=== PATIENT | female | born 1990 | race Caucasian/White ===

== ENCOUNTER 2020-10-05 21:54 | Emergency (ER) | payer SELFPAY ==
[2020-10-05 22:07] VITALS: BP 144/80; PULSE 88; TEMP 98.7; BMI 28.3
[2020-10-05] MEDS ORDERED: SODIUM CHLORIDE 1,000 ML IV STA (22:47)
[2020-10-05] MEDS ORDERED: METOCLOPRAMIDE HCL INJECTION 10 MG/2 ML VIAL IVPUSH ONE (22:47)
[2020-10-05] MEDS ORDERED: METOCLOPRAMIDE HCL INJECTION 10 MG/2 ML VIAL ONE (22:56)
[2020-10-05] MEDS ORDERED: KETOROLAC TROMETHAMINE 30 MG/1 ML VIAL IVPUSH ONE (23:25)
[2020-10-05] MEDS ORDERED: KETOROLAC TROMETHAMINE 30 MG/1 ML VIAL ONE (23:52)
== END 2020-10-06 01:37 | disposition home or self-care (01) ==
LOC: JER 21:54
PROC: 3E033GC Introduction of Other Therapeutic Substance into Peripheral Vein, Percutaneous Approach (ICD-10-PCS; principal; 2020-10-05)
PROC: 3E0333Z Introduction of Anti-inflammatory into Peripheral Vein, Percutaneous Approach (ICD-10-PCS; 2020-10-05)
PROC: 3E033GC Introduction of Other Therapeutic Substance into Peripheral Vein, Percutaneous Approach (ICD-10-PCS; 2020-10-05)
PROC: 3E0337Z Introduction of Electrolytic and Water Balance Substance into Peripheral Vein, Percutaneous Approach (ICD-10-PCS; 2020-10-05)
DX: G44.209 Tension-type headache, unspecified, not intractable (principal)
CPT/HCPCS: 71046-TC-FY; 84703; 99284-25

== ENCOUNTER 2022-03-04 13:57 | Emergency (ER) | payer OTHER ==
[2022-03-04 14:01] VITALS: BP 122/80; PULSE 80; RESP 18; TEMP 97.2; BMI 27.0
[2022-03-04] MEDS ORDERED: SODIUM CHLORIDE 0.9% 500 ML INFUS.BAG IV ONE (15:23)
== END 2022-03-04 17:24 | disposition left against medical advice (07) ==
LOC: JER 13:57
DX: R55 Syncope and collapse (principal)
CPT/HCPCS: 99283-25; 99284-25

== ENCOUNTER 2022-05-23 14:33 | Emergency (ER) | payer OTHER ==
[2022-05-23 14:45] VITALS: BP 120/74; PULSE 89; RESP 20; TEMP 98; BMI 27.6
[2022-05-23] MEDS ORDERED: IBUPROFEN 600 MG TABLET (FP) PO ONE ×2 (15:50→15:51)
== END 2022-05-23 16:20 | disposition home or self-care (01) ==
LOC: JERFT 14:33
PROC: 2W38X1Z Immobilization of Right Upper Extremity using Splint (ICD-10-PCS; principal; 2022-05-23)
DX: S50.01XA Contusion of right elbow, initial encounter (principal); W01.0XXA Fall on same level from slipping, tripping and stumbling without subsequent striking against object, initial encounter
CPT/HCPCS: 73070-TC-RT-FY; 73110-TC-RT-FY; 99284-25

== ENCOUNTER 2022-08-16 19:28 | Emergency (ER) | payer OTHER ==
[2022-08-16 19:37] VITALS: RESP 18; TEMP 98.4; BMI 29.2
[2022-08-16] MEDS ORDERED: MAG HYDROX/AL HYDROX/SIMETH 30 ML UNIT-DOSE CUP PO ONE (20:56)
[2022-08-16] MEDS ORDERED: FAMOTIDINE 20 MG TABLET PO ONE (20:56)
[2022-08-16] MEDS ORDERED: ACETAMINOPHEN 325 MG TABLET (FP) PO ONE (20:56)
[2022-08-16] MEDS ORDERED: FAMOTIDINE 20 MG TABLET ONE (21:36)
[2022-08-16] MEDS ORDERED: ACETAMINOPHEN 325 MG TABLET (FP) ONE (21:37)
[2022-08-16] MEDS ORDERED: MAG HYDROX/AL HYDROX/SIMETH 30 ML UNIT-DOSE CUP ONE (21:37)
[2022-08-16 22:10] LABS: BASO % 0.5 % (0-2.0); EOS % 2.2 % (0-4.5); HEMATOCRIT 38.9 % (32.4-45.2); HEMOGLOBIN 13.6 GM/dL (10.7-15.3); MCH 30.1 pg (25.7-33.7); MCHC 34.8 g/dl (32.0-36.0); MEAN CELL VOLUME 86.3 fl (80-96); MEAN PLT VOLUME 8.4 fl (7.5-11.1); MONO % 5.1 % (3.8-10.2); NEUT % 76.2 % (42.8-82.8); PLATELET COUNT 336 10^3/uL (134-434); RBC 4.51 M/mm3 (3.60-5.2); RDW 13.9 % (11.6-15.6); WHITE BLOOD COUNT 6.7 K/mm3 (4.0-10.0)
[2022-08-16 22:39] LABS: INR 1.18 (0.83-1.09); PROTHROMBIN TIME (PATIENT) 13.7 SEC (9.7-13.0)
[2022-08-16 22:41] LABS: ACTIVATED PTT 28.4 SECONDS (25.2-36.5)
[2022-08-16 22:45] LABS: CALCIUM 9.4 mg/dL (8.5-10.1)
[2022-08-16 22:46] LABS: ALBUMIN 4.3 g/dl (3.4-5.0); BLOOD UREA NITROGEN 11.3 mg/dL (7-18)
[2022-08-16 22:49] LABS: CREATININE 0.7 mg/dL (0.55-1.3)
[2022-08-16 22:50] LABS: BILIRUBIN,TOTAL 0.4 mg/dL (0.2-1)
[2022-08-16 22:51] LABS: TOT PROT 8.7 g/dl (6.4-8.2)
[2022-08-17 03:20] VITALS: BP 138/81; PULSE 80
[2022-08-17] MEDS ORDERED: ACETAMINOPHEN 325 MG TABLET (FP) PO ONE (04:17)
[2022-08-17] MEDS ORDERED: MAG HYDROX/AL HYDROX/SIMETH 30 ML UNIT-DOSE CUP PO ONE (04:17)
[2022-08-17] MEDS ORDERED: MAG HYDROX/AL HYDROX/SIMETH 30 ML UNIT-DOSE CUP ONE (04:26)
[2022-08-17] MEDS ORDERED: ACETAMINOPHEN 325 MG TABLET (FP) ONE (04:26)
== END 2022-08-17 04:46 | disposition left against medical advice (07) ==
LOC: JER 19:28
DX: R07.89 Other chest pain (principal); R06.02 Shortness of breath; R11.0 Nausea; R09.81 Nasal congestion; R07.0 Pain in throat; Z20.822 Contact with and (suspected) exposure to COVID-19
CPT/HCPCS: 0241U-QW; 36415; 71046-TC-FY; 71275-TC; 80053; 84484; 84703; 85025; 85379; 85610; 85730; 93005; 93010; 99285-25; Q9967

== ENCOUNTER 2022-10-14 05:29 | Emergency (ER) | payer OTHER ==
[2022-10-14 05:49] VITALS: BMI 29.2
[2022-10-14] MEDS ORDERED: MAG HYDROX/AL HYDROX/SIMETH 30 ML UNIT-DOSE CUP PO ONE (07:34)
[2022-10-14] MEDS ORDERED: ONDANSETRON 4 MG/2 ML VIAL IVPUSH ONE (07:35)
[2022-10-14] MEDS ORDERED: FAMOTIDINE 20 MG/50 ML IVPB 20 MG/50 ML MG IVPB ONE ×3 (07:35→08:56)
[2022-10-14] MEDS ORDERED: ONDANSETRON 4 MG/2 ML VIAL ONE (08:55)
[2022-10-14] MEDS ORDERED: MAG HYDROX/AL HYDROX/SIMETH 30 ML UNIT-DOSE CUP ONE (08:55)
[2022-10-14 09:03] LABS: HEMATOCRIT 35.3 % (32.4-45.2); HEMOGLOBIN 11.7 GM/dL (10.7-15.3); MCH 28.2 pg (25.7-33.7); MCHC 33.1 g/dl (32.0-36.0); MEAN PLT VOLUME 7.7 fl (7.5-11.1); PLATELET COUNT 274 10^3/uL (134-434); RBC 4.15 M/mm3 (3.60-5.2); RDW 13.8 % (11.6-15.6); WHITE BLOOD COUNT 4.2 K/mm3 (4.0-10.0)
[2022-10-14 09:10] LABS: INR 1.21 (0.83-1.09)
[2022-10-14 09:13] LABS: ACTIVATED PTT 27.8 SECONDS (25.2-36.5)
[2022-10-14 09:17] VITALS: BP 120/72; PULSE 80; RESP 14; TEMP 98.2
[2022-10-14 09:36] LABS: POTASSIUM 4.1 mmol/L (3.5-5.1)
[2022-10-14 09:37] LABS: ALBUMIN 4.1 g/dl (3.4-5.0); CALCIUM 8.8 mg/dL (8.5-10.1)
[2022-10-14 09:38] LABS: BLOOD UREA NITROGEN 13.7 mg/dL (7-18)
[2022-10-14 09:41] LABS: CREATININE 0.6 mg/dL (0.55-1.3)
[2022-10-14 09:42] LABS: BILIRUBIN,TOTAL 0.3 mg/dL (0.2-1); TOT PROT 7.4 g/dl (6.4-8.2)
[2022-10-14 10:39] LABS: ANISOCYTOSIS 0; HELMET CELLS 0; HOWELL-JOLLY BODIES 0; MACROCYTOSIS 0; OVALOCYTE 0; ROULEAU 0; SICKELED CELLS 0; TARGET CELLS 0; TEAR DROP CELLS 0; TOXIC GRANULATION 0
== END 2022-10-14 10:19 | disposition home or self-care (01) ==
LOC: JER 05:29
PROC: 3E033GC Introduction of Other Therapeutic Substance into Peripheral Vein, Percutaneous Approach (ICD-10-PCS; principal; 2022-10-14)
PROC: 3E033GC Introduction of Other Therapeutic Substance into Peripheral Vein, Percutaneous Approach (ICD-10-PCS; 2022-10-14)
DX: R07.9 Chest pain, unspecified (principal); R07.0 Pain in throat; Z20.822 Contact with and (suspected) exposure to COVID-19
CPT/HCPCS: 36415; 71046-TC-FY; 80053; 83690; 84484; 84703; 85025; 85610; 85730; 87651; 93005; 93010; 99285-25

== ENCOUNTER 2023-10-31 13:01 | Emergency (ER) | payer SELFPAY ==
[2023-10-31 13:22] VITALS: BP 148/106; PULSE 77; RESP 18; TEMP 98.2
[2023-10-31] MEDS ORDERED: ACETAMINOPHEN INJECTION 100 ML IVPB ONE (14:48)
[2023-10-31] MEDS ORDERED: METOCLOPRAMIDE HCL INJECTION 10 MG/2 ML VIAL ONE (14:48)
[2023-10-31] MEDS: ACETAMINOPHEN 1000 MG/100 ML BAG IVPB ONE (14:55)
[2023-10-31] MEDS: SODIUM CHLORIDE 0.9% 500 ML INFUS.BAG IV ONE (15:19)
[2023-10-31] MEDS: METOCLOPRAMIDE HCL INJECTION 10 MG/2 ML VIAL IVPB ONE (15:19)
[2023-10-31 15:29] LABS: BASO % 0.3 % (0-2.0); EOS % 0.1 % (0-4.5); HEMATOCRIT 38.7 % (32.4-45.2); HEMOGLOBIN 12.7 GM/dL (10.7-15.3); LYMPH % 13.8 % (8-40); MCH 29.1 pg (25.7-33.7); MCHC 32.7 g/dl (32.0-36.0); MEAN PLT VOLUME 8.7 fl (7.5-11.1); MONO % 5.1 % (3.8-10.2); NEUT % 80.7 % (42.8-82.8); PLATELET COUNT 278 10^3/uL (134-434); RBC 4.35 M/mm3 (3.60-5.2); RDW 14.4 % (11.6-15.6); WHITE BLOOD COUNT 9.1 K/mm3 (4.0-10.0)
[2023-10-31 15:50] LABS: POTASSIUM 4.5 mmol/L (3.5-5.1)
[2023-10-31 15:52] LABS: BLOOD UREA NITROGEN 9.8 mg/dL (7-18); CALCIUM 9.6 mg/dL (8.5-10.1); MAGNESIUM 2.6 mg/dL (1.8-2.4)
[2023-10-31 15:55] LABS: CREATININE 0.6 mg/dL (0.55-1.3)
[2023-10-31 15:57] LABS: BILIRUBIN,TOTAL 0.5 mg/dL (0.2-1); TOT PROT 7.9 g/dl (6.4-8.2)
[2023-10-31] MEDS ORDERED: amLODIPine BESYLATE 5 MG TABLET (FP) ONE (16:41)
[2023-10-31] MEDS: amLODIPine BESYLATE 5 MG TABLET (FP) PO ONE (16:45)
== END 2023-10-31 17:11 | disposition home or self-care (01) ==
LOC: JER 13:01
PROC: 3E033NZ Introduction of Analgesics, Hypnotics, Sedatives into Peripheral Vein, Percutaneous Approach (ICD-10-PCS; principal; 2023-10-31)
PROC: 3E033GC Introduction of Other Therapeutic Substance into Peripheral Vein, Percutaneous Approach (ICD-10-PCS; 2023-10-31)
PROC: 3E033GC Introduction of Other Therapeutic Substance into Peripheral Vein, Percutaneous Approach (ICD-10-PCS; 2023-10-31)
DX: S00.81XA Abrasion of other part of head, initial encounter (principal); R55 Syncope and collapse; R42 Dizziness and giddiness; R68.83 Chills (without fever); R51.9 Headache, unspecified; M54.2 Cervicalgia; R11.0 Nausea; Y04.8XXA Assault by other bodily force, initial encounter
CPT/HCPCS: 36415; 70450-TC; 71046-TC-FY; 80053; 83735; 84484; 84703; 85025; 93005; 93010; 99285-25; J0131